=== PATIENT | female | born 1990 | race African-American/Black ===

== ENCOUNTER → 2016-12-27 | Outpatient (CLI) | payer MEDICAID ==
--- NOTE | 2016-12-27 16:28 | RADIOLOGY REPORT (SQ) ---
EXAM DESCRIPTION: U/S 1TRIMESTER/1GEST W/DOPPLER COMPLETED DATE/TIME: 12/27/2016 3:22 pm REASON FOR STUDY: ENCOUNTER FOR SUPERVISION OF NORMAL Z34.81 ENCOUNTER FOR SUPRVSN OF NOR MAL , FIRST TRIM COMPARISON: None. TECHNIQUE: Transabdominal and endovaginal static and realtime grayscale images acquired of the pelvi s. Additional selected spectral and color Doppler images recorded. All images stored on PACs. bHCG: Not available, last menses 10/07/2016 LIMITATIONS: None. FINDINGS: There is an intrauterine gestational sac containing an embryo, embryo crown-rump length ge nerates an age of 7 weeks 3 days. There is no embryo cardiac activity on cine loop grayscale images, color flow, or M-mode Doppler. This report was called to Jolie Ching at the [facility] Department, 1 430 hours 12/27/2016. SUBCHORIONIC BLEED: No SIZE OF BLEED: Not applicable. UTERUS: No masses. No anomalies. 9.6 x 6.6 x 5.5 cm in size CERVICAL LENGTH: 3.5 cm Closed. RIGHT ADNEXA: Normal ovary with normal vascular flow. 2.3 x 1 x 1.7 cm in size No adnexal free fluid. No adnexal masses. LEFT ADNEXA: Normal ovary with normal vascular flow. 2.5 x 2.5 x 1.7 cm in size. 1.4 cm cyst left o vary likely the corpus luteum No adnexal free fluid. No adnexal masses. FREE FLUID: None. OTHER: No other significant finding. IMPRESSION: Embryo demise, 7 week 3 day embryo intrauterine without embryo cardiac activit y Report called to Jolie Ching at the Health Department Trimester of : First - 0 to 13 weeks. COMMENT: Pertinent findings on the imaging study reported as a CRITICAL RESULT to JOLIE CHING FORM COVERER at14:31 on 12/27/2016. Category of Critical Result: Embryo demise TECHNICAL DOCUMENTATION: JOB ID: [id number] [employer]- All Rights Reserved
== END ==
LOC: RAD 14:02
PROVIDERS: ATTEND Nurse Practitioner Women's Health
DX: Z34.81 Encounter for supervision of other normal pregnancy, first trimester (principal)
CPT/HCPCS: 76801; 93976

== ENCOUNTER 2017-01-10 08:34 | Day surgery (SDC) | payer MEDICAID ==
[~2017-01-10 08:34] MED LIST: DEXAMETHASONE SOD PHOSPHATE INJ 4 MG/1 ML VIAL ONE; LIDOCAINE 2% INJ-PF (20 MG/ML) 10 ML AMPUL ONE; ONDANSETRON HCL INJ/PF 4 MG/2 ML SDV ONE; SUCCINYLCHOLINE CHLORIDE INJ 200 MG/10 ML VIAL ONE
[2017-01-10] MEDS ORDERED: DOXYCYCLINE HYCLATE 100 MG in DEXTROSE 5%-WATER 250 ML IV PRN (09:00)
[2017-01-10 09:14] LABS: APPEARANCE,URINE CLEAR; BILIRUBIN,URINE NEGATIVE (NEGATIVE); GLUCOSE, URINE NEGATIVE (NEGATIVE); KETONES,URINE NEGATIVE (NEGATIVE); LEUKOCYTE ESTERASE,URINE NEGATIVE (NEGATIVE); NITRITE,URINE NEGATIVE (NEGATIVE); PROTEIN,URINE NEGATIVE (NEGATIVE); URINE SPECIFIC GRAVITY 1.013; UROBILINOGEN,URINE NEGATIVE mg/dL (<2.0)
[2017-01-10 09:18] LABS: HEMATOCRIT 36.7 % (36.0-47.0); HEMOGLOBIN 12.4 g/dL (12.0-15.5); HGB HCT DIFFERENCE 0.5; MEAN CORPUSCULAR HEMOGLOBIN 31.2 pg (27.0-33.4); MEAN CORPUSCULAR HGB CONC 33.7 g/dL (32.0-36.0); MEAN CORPUSCULAR VOLUME 93 fl (80-97); RED BLOOD COUNT 3.96 10^6/uL (3.72-5.28); WHITE BLOOD COUNT 11.2 10^3/uL (4.0-10.5)
[2017-01-10] MEDS ORDERED: DEXAMETHASONE SOD PHOSPHATE INJ 4 MG/1 ML VIAL ONE (11:27)
[2017-01-10] MEDS ORDERED: FENTANYL CITRATE INJ/PF 250 MCG/5 ML AMPULE ONE (11:27)
[2017-01-10] MEDS ORDERED: MIDAZOLAM 2 MG/2 ML INJ ONE (11:27)
[2017-01-10] MEDS ORDERED: ACETAMINOPHEN 100 ML IV ONE (11:28)
[2017-01-10] MEDS ORDERED: PROPOFOL INJ 200 MG/20 ML VIAL IV ONE (11:28)
[2017-01-10] MEDS ORDERED: ONDANSETRON HCL INJ/PF 4 MG/2 ML SDV ONE (11:28)
[2017-01-10] MEDS ORDERED: LIDOCAINE 0.5%/EPINEPHRINE INJ 50 ML VIAL ONE (11:39)
[2017-01-10] MEDS ORDERED: MISOPROSTOL 0.2 MG TABLET ONE (11:51)
[2017-01-10] MEDS ORDERED: METHYLERGONOVINE MALEATE INJ/PF 0.2 MG/1 ML AMPULE ONE (11:51)
[2017-01-10] MEDS ORDERED: DIPHENHYDRAMINE HCL 50 MG/ML VIAL IV PRN (12:11)
[2017-01-10] MEDS ORDERED: OXYCODONE-ACETAMINOPHEN 5-325 MG TABLET PO PRN ×4 (12:11→12:47)
[2017-01-10] MEDS ORDERED: FENTANYL CITRATE INJ/PF 100 MCG/2 ML AMPUL IV PRN ×3 (12:11)
[2017-01-10] MEDS ORDERED: PROMETHAZINE HCL INJ 25 MG/1 ML VIAL IV PRN ×2 (12:11)
[2017-01-10] MEDS ORDERED: ONDANSETRON HCL INJ/PF 4 MG/2 ML SDV IV PRN (12:11)
[2017-01-10] MEDS ORDERED: MEPERIDINE HCL/PF INJ 25 MG/1 ML DISP.SYRIN IV PRN (12:11)
[2017-01-10] MEDS ORDERED: MORPHINE SULFATE 10 MG/ML INJ IV PRN (12:11)
[2017-01-10] MEDS ORDERED: FENTANYL CITRATE INJ/PF 100 MCG/2 ML AMPUL ONE (12:43)
[2017-01-10] MEDS ORDERED: IBUPROFEN 800 MG TABLET PO PRN (12:47)
[2017-01-10] MEDS ORDERED: HYDROMORPHONE HCL INJ/PF 2 MG/ML AMPULE IV PRN (12:47)
[2017-01-10] MEDS ORDERED: RINGERS SOLUTION,LACTATED 1,000 ML IV PRN (13:07)
[2017-01-10 15:26] VITALS: BP 112/78
--- NOTE | 2017-02-09 22:09 | Operative Report ---
Operative Report DATE OF SURGERY: 01/10/17 PREOPERATIVE DIAGNOSIS: Missed POSTOPERATIVE DIAGNOSIS: RICKIE - s/p suction Dilation and Curettage OPERATION: EUA, Paracervical Block, Suction D&C SURGEON: PADMINI RAMIREZ ANESTHESIA: GA TISSUE REMOVED OR ALTERED: products of conception COMPLICATIONS: NOne ESTIMATED BLOOD LOSS: 50ml INTRAOPERATIVE FINDINGS: Moderate products of conception, 8-10 week anteverted uterus PROCEDURE: Anesthesia: [Damaris CARNEY, Josie Shankar CRNA ] Anesthesia: GA UOP: [void prior to OR] IVF: [550ml] Indications: [26yo with missed confirmed now with 3 Ultrasounds noting no FCA. She desired attempt at cytotec for treatment of missed which failed and now desires Surgical management. The risks/benefits/ alternatives were reviewed and the patient desires to proceed with planned procedure.] Procedure: The patient was taken to the Operating Room where general anesthesia was obtained without difficulty. She was prepped and draped in the normal sterile fashion in the dorsal lithotomy position. Exam under anesthesia was performed and noted above. A speculum was placed in the vagina. The anterior cervix was grasped with a single-tooth tenaculum and the uterus sounded to [9cm ] after paracervical block was performed with 8 mL of 1% lidocaine with epinephrine. The cervix was noted to be closed at the beginning of the procedure. Sequential dilators were then used to dilate the cervix to accommodate the the 8 mm suction curet curved. The 8 mm curved suction curet was gently advanced in the usual fashion and good return of tissue. The suction device was then activated and the curet rotated to clear the uterus of the products of conception. A sharp curettage was then performed. The suction device was then gently reintroduced and activated and the curet rotated to clear the uterus of conception which was loosened with recent sharp curettage. The sharp curettage was then performed again until a gritty texture was noted and the cavity was felt to be empty of further tissue. At this time there was minimal bleeding noted from the cervix. All instruments were removed from the patient's cervix and vagina. Silver nitrate was applied to the tenaculum site for hemostasis. Sponge lap needle and instrument counts are correct 2. Doxycycline 100 mg IV was given perioperatively. The patient tolerated the procedure well and was taken to the recovery area awake and in stable condition. The patient was discharged home with pain medications as well as by mouth Methergine.
== END 2017-01-10 15:15 | disposition home or self-care (01) ==
LOC: OROUT 08:34
PROVIDERS: ATTEND Student in an Organized Health Care Education/Training Program
PROC: 10D17ZZ Extraction of Products of Conception, Retained, Via Natural or Artificial Opening (ICD-10-PCS; principal; 2017-01-10 10:30)
DX: O02.1 Missed abortion (principal); O03.39 Incomplete spontaneous abortion with other complications
CPT/HCPCS: 36415; 87086; 85027; 87088; 81001; 87186; 88305 ×2; 59820; J2250; J3490 ×4; J1100; J3010 ×2; J1170; J0330; J2405; J7060; J2704; J0131; 1965; J2210

== ENCOUNTER 2017-07-27 15:33 | Emergency (ER) | payer MEDICAID ==
--- NOTE | 2017-07-27 16:12 | ER Document Report ---
HPI - HPI Pain Level: 5 Notes: Patient is a 27-year-old female with no significant past medical history who presents to the ED complaining of fever, chills, body ache, nasal congestion/ discharge, dry nonproductive cough, sore throat 4 days. Patient is still eating and drinking without any difficulties. She is urinating normally having normal bowel movements. She has not been using any vijy-lca-xiruqth meds for symptoms. She denies any drug allergies. She denies any significant cardiopulmonary medical history. She denies any IV drug use. No other immunocompromised medical conditions. Denies any headache, current fever, neck pain, chest pain, palpitations, syncope, shortness of breath, wheeze, dyspnea, abdominal pain, nausea/vomiting/diarrhea, urinary retention, dysuria, hematuria , or rash. - ROS Systems Reviewed and Negative: Yes All other systems reviewed and negative - REPRODUCTIVE Reproductive: DENIES: : Past Medical History - Social History Smoking Status: Current Every Day Smoker Family History: DM, Hypertension, Malignancy - Past Medical History Cardiac Medical History: Denies: Hx Coronary Artery Disease, Hx Heart Attack, Hx Hypertension Pulmonary Medical History: Denies: Hx Asthma, Hx Bronchitis, Hx COPD, Hx Pneumonia, Hx Tuberculosis Neurological Medical History: Denies: Hx Cerebrovascular Accident, Hx Seizures Renal/ Medical History: Reports: Hx Ovarian Cysts GI Medical History: Reports: Hx Hiatal Hernia Musculoskeltal Medical History: Denies Hx Arthritis Past Surgical History: Reports: Hx Appendectomy, Hx Section, Hx Herniorrhaphy, Hx Oral Surgery - [place] teeth, Hx Tonsillectomy, Hx Umbilical Hernia. Denies: Hx Hysterectomy, Hx Pacemaker - Immunizations Hx Diphtheria, Pertussis, Tetanus Vaccination: Yes Vertical Provider Document - CONSTITUTIONAL Agree With Documented VS: Yes Notes: PHYSICAL EXAMINATION: GENERAL: Well-appearing, well-nourished and in no acute distress. A&Ox4. Answers questions appropriately. Moves comfortably w/o notable distress HEAD: Atraumatic, normocephalic. EYES: Pupils equal round and reactive to light, extraocular movements intact, sclera anicteric, conjunctiva are normal. ENT: EAC clear b/l. TM's intact b/l without erythema, fluid, or perforation. Nares patent and with clear discharge. oropharynx mild erythema without exudates. Tonsils absent. No palatine shift. Uvula midline. No tongue protrusion. No drooling, hoarseness, or airway compromise. Moist mucous membranes. No sinus tenderness. NECK: Normal range of motion, supple without lymphadenopathy. No rigidity/ meningismus. LUNGS: Breath sounds clear to auscultation bilaterally and equal. No wheezes rales or rhonchi. No retractions HEART: Regular rate and rhythm without murmurs, rubs, gallops. ABDOMEN: Soft, nontender, nondistended abdomen. No guarding, no rebound. No masses appreciated. Normal bowel sounds present. No CVA tenderness bilaterally. No hepatosplenomegaly. NEUROLOGICAL: Normal speech, normal gait. Normal sensory, motor exams PSYCH: Normal mood, normal affect. SKIN: Warm, Dry, normal turgor, no rashes or lesions noted. - INFECTION CONTROL TRAVEL OUTSIDE OF THE [place] IN LAST 30 DAYS: No - RESPIRATORY O2 Sat by Pulse Oximetry: 98 Course - Re-evaluation Re-evalutation: 07/27/17 16:45 Patient is an afebrile, well-hydrated, 27-year-old female who presents ED with acute URI, suspect influenza. Vitals are stable. PE is otherwise unremarkable. CXR unremarkable for acute pathology. Rapid strep neg with cx pending. No other labs or imaging warranted at this time based on H&P. Patient has no significant cardiopulmonary or immunocompromised medical conditions. Patient's lungs are clear to auscultation bilaterally without tachycardia, hypoxia, or tachypnea. Patient is tolerating p.o. without any difficulties. Thoroughly reviewed the risks, benefits, side effects of Tamiflu. Patient declines Tamiflu at this time. Low suspicion for any meningitis, sepsis, peritonsillar/pharyngeal abscess, respiratory compromise, severe dehydration, or other emergent systemic condition at this time. Patient is aware this condition can change from initial presentation and she needs to monitor symptoms closely. I will send her home with a prescription for Tessalon to take as directed. Conservative measures otherwise for symptoms. Recheck with your PCM in 3-5 days. Return to the ED with any worsening/ concerning symptoms otherwise as reviewed in discharge. Patient is in agreement. - Vital Signs Vital signs: Temp Pulse Resp BP Pulse Ox 98.8 F 76 16 119/69 98 07/27/17 15:52 07/27/17 15:52 07/27/17 15:52 07/27/17 15:52 02/09/18 15:52 Discharge - Discharge Clinical Impression: Acute URI, Influenza Condition: Stable Disposition: HOME, SELF-CARE Instructions: Influenza ([facility]), Sore Throat ([facility]), Upper Respiratory Illness ( [facility]) Additional Instructions: Maintain adequate fluid intake Take meds as directed tylenol/ibuprofen as needed over the counter cold medication as needed for symptoms Salt water gargles, throat sprays, peroxide rinse Humidified air may help Wash your hands regularly Wear a mask when coughing F/u: with your PCM in 3-5 days for a recheck Return to the ED with any fever, worsening pain, chest pain, palpitations, syncope, worsening SHAFFER, neck pain/stiffness, shortness of breath, wheezing, drooling, trouble swallowing/breathing, abdominal pain, n/v/d, rash, or worsening/concerning symptoms otherwise. Prescriptions: Benzonatate [Tessalon Perle 100 mg Capsule] 100 mg PO Q8HP PRN #[id number] PRN Reason: Referrals: [facility] [Provider Group] - Follow up as needed [facility] [Provider Group] - Follow up as needed
[2017-07-27] MEDS ORDERED: ACETAMINOPHEN 325 MG TABLET PO ONE (16:20)
--- NOTE | 2017-07-27 16:45 | RADIOLOGY REPORT (SQ) ---
EXAM DESCRIPTION: CHEST PA/LAT COMPLETED DATE/TIME: 07/27/2017 4:28 pm REASON FOR STUDY: cough COMPARISON: June 2015 EXAM PARAMETERS: NUMBER OF VIEWS: two views TECHNIQUE: Digital Frontal and Lateral radiographic views of the chest acquired. RADIATION DOSE: NA LIMITATIONS: none FINDINGS: LUNGS AND PLEURA: No opacities, masses or pneumothorax. No pleural effusion. MEDIASTINUM AND HILAR STRUCTURES: No masses or contour abnormalities. HEART AND VASCULAR STRUCTURES: Heart normal size. No evidence for failure. BONES: No acute findings. HARDWARE: None in the chest. OTHER: No other significant finding. IMPRESSION: NO SIGNIFICANT RADIOGRAPHIC FINDING IN THE CHEST. TECHNICAL DOCUMENTATION: JOB ID: [id number] [employer]- All Rights Reserved
[2017-07-27 16:57] VITALS: BP 124/70
== END 2017-07-27 16:55 | disposition home or self-care (01) ==
LOC: ER 15:33
DX: J11.1 Influenza due to unidentified influenza virus with other respiratory manifestations (principal); R50.9 Fever, unspecified; R05 Cough; F17.200 Nicotine dependence, unspecified, uncomplicated
CPT/HCPCS: 99283; 87070; 87880; 71046; J3490

== ENCOUNTER 2019-08-17 00:24 | Emergency (ER) | payer MEDICAID ==
[2019-08-17 00:50] LABS: ABSOLUTE EOSINOPHILS # (AUTO) 0.3 10^3/uL (0.0-0.6); ABSOLUTE MONOCYTES (AUTO) 1.5 10^3/uL (0.1-1.4); ABSOLUTE NEUT (AUTO) 12.6 10^3/uL (1.7-8.2); BASOPHILS % (AUTO) 0.2 % (0-2); EOSINOPHILS % (AUTO) 1.4 % (0-6); HEMATOCRIT 41.1 % (36.0-47.0); HEMOGLOBIN 13.4 g/dL (12.0-15.5); LYMPHOCYTES % (AUTO) 25.9 % (13-45); MEAN CORPUSCULAR HGB CONC 32.6 g/dL (32.0-36.0); MEAN CORPUSCULAR VOLUME 95 fl (80-97); MONOCYTES % (AUTO) 7.8 % (3-13); PLATELET COUNT 283 10^3/uL (150-450); RED BLOOD COUNT 4.33 10^6/uL (3.72-5.28); RED CELL DISTRIBUTION WIDTH 14.8 % (11.5-14.0); SEGMENTED NEUTROPHILS % (AUTO) 64.7 % (42-78); TOTAL CELLS COUNTED % (AUTO) 100 %; WHITE BLOOD COUNT 19.4 10^3/uL (4.0-10.5)
[2019-08-17 01:22] LABS: A TYPE INFLUENZA AG NEGATIVE (NEGATIVE); B INFLUENZA AG NEGATIVE (NEGATIVE)
--- NOTE | 2019-08-17 01:30 | RADIOLOGY REPORT (SQ) ---
EXAM DESCRIPTION: XR CHEST 1 VIEW COMPLETED DATE/TME: 08/17/2019 00:36 CLINICAL HISTORY: 29 years, Female, fever, shortness of breath COMPARISON: None. NUMBER OF VIEWS: 2 TECHNIQUE: LIMITATIONS: None. FINDINGS: Cardiomediastinal silhouette is normal. Lungs are clear. No effusion. No pneumothorax. Visualized bones are unremarkable IMPRESSION: No active intrathoracic disease copyright 2010 [employer]- All Rights Reserved
[2019-08-17 01:55] LABS: APPEARANCE,URINE CLOUDY; BILIRUBIN,URINE NEGATIVE (NEGATIVE); COLOR,URINE YELLOW; GLUCOSE, URINE NEGATIVE (NEGATIVE); KETONES,URINE 20 mg/dL (NEGATIVE); LEUKOCYTE ESTERASE,URINE TRACE (NEGATIVE); NITRITE,URINE NEGATIVE (NEGATIVE); PROTEIN,URINE NEGATIVE (NEGATIVE); URINE SPECIFIC GRAVITY 1.016
[2019-08-17 01:59] LABS: ALBUMIN 4.2 g/dL (3.5-5.0); ALKALINE PHOSPHATASE 110 U/L (38-126); ANION GAP 9 (5-19); ASPARTATE AMINO TRANSFERASE 65 U/L (14-36); BILIRUBIN,DIRECT 0.1 mg/dL (0.0-0.4); BILIRUBIN,TOTAL 0.8 mg/dL (0.2-1.3); BLOOD UREA NITROGEN 9 mg/dL (7-20); CALCIUM 9.3 mg/dL (8.4-10.2); CARBON DIOXIDE 23 mmol/L (22-30); CHLORIDE 104 mmol/L (98-107); GLUCOSE 118 mg/dL (75-110); POTASSIUM 3.4 mmol/L (3.6-5.0); TOTAL PROTEIN 7.7 g/dL (6.3-8.2)
[2019-08-17 03:46] VITALS: BP 118/83
[2019-08-17] MEDS ORDERED: ALBUTEROL SULFATE HFA (90 MCG/PUFF) 8 GM MDI IH PRN (03:48)
[2019-08-17] MEDS ORDERED: ALBUTEROL SULFATE 0.083% NEB 2.5 MG/3 ML AMPUL NEB PRN (03:48)
[2019-08-17] MEDS ORDERED: PREDNISONE 20 MG TABLET PO ONE (03:49)
--- NOTE | 2019-08-17 05:31 | ER Document Report ---
Entered by LUIS ALEXIS SCRIBE 08/17/19 0343 Acting as scribe for:BLANCA NIELSEN IV, MD ED General - General Chief Complaint: Fever Stated Complaint: FEVER,SHORTNESS OF BREATH Time Seen by Provider: 08/17/19 03:41 Primary Care Provider: SHAWNEE NGUYEN DO [Primary Care Provider] - Follow up as needed Mode of Arrival: Medic Information source: Patient Notes: This 29 year old female patient brought in by EMS from home presents to the ED today with complaints of worsening malaise and shortness of breath with exertion for the past x1 week. Patient reports walking in the house tonight feeling very short of breath and having fevers throughout the day. Patient also reports cough and dyspnea. Patient states that she did take 975mg PO tylenol prior to EMS arrival. EMS states that they administered x1 breathing treatment en route. Patient states that she is a current every day smoker and that she has never had an albuterol inhaler before. TRAVEL OUTSIDE OF THE [place] IN LAST 30 DAYS: No - Related Data Allergies/Adverse Reactions: No Known Allergies Allergy (Verified 07/27/17 15:34) Past Medical History - General Information source: Patient - Social History Smoking Status: Current Every Day Smoker Cigarette use (# per day): Yes Chew tobacco use (# tins/day): No Smoking Education Provided: No Family History: Reviewed & Not Pertinent, DM, Hypertension, Malignancy Patient has suicidal ideation: No Patient has homicidal ideation: No Renal/ Medical History: Reports: Hx Ovarian Cysts GI Medical History: Reports: Hx Hiatal Hernia Past Surgical History: Reports: Hx Appendectomy, Hx Section, Hx Herniorrhaphy, Hx Oral Surgery - [place] teeth, Hx Tonsillectomy, Hx Umbilical Hernia - Immunizations Hx Diphtheria, Pertussis, Tetanus Vaccination: Yes Review of Systems - Review of Systems Constitutional: See HPI, Fever, Malaise EENT: No symptoms reported Cardiovascular: See HPI, Dyspnea Respiratory: See HPI, Cough, Short of breath Gastrointestinal: No symptoms reported Genitourinary: No symptoms reported Female Genitourinary: No symptoms reported Musculoskeletal: No symptoms reported Skin: No symptoms reported Hematologic/Lymphatic: No symptoms reported Neurological/Psychological: No symptoms reported -: Yes All other systems reviewed and negative Physical Exam - Vital signs Vitals: Resp Pulse Ox 19 98 08/17/19 00:30 08/17/19 00:30 Interpretation: Normal - General General appearance: Alert In distress: None - HEENT Head: Normocephalic, Atraumatic Eyes: Normal Pupils: PERRL - Respiratory Respiratory status: No respiratory distress Chest status: Nontender Breath sounds: Normal Chest palpation: Normal - Cardiovascular Rhythm: Regular Heart sounds: Normal auscultation Murmur: No Friction rub: No Gallop: None auscultated - Abdominal Inspection: Normal Distension: No distension Bowel sounds: Normal Tenderness: Nontender - Abdomen soft Organomegaly: No organomegaly - Back Back: Normal, Nontender - Extremities General upper extremity: Normal inspection General lower extremity: Normal inspection - Neurological Neuro grossly intact: Yes - Psychological Associated symptoms: Normal affect, Normal mood - Skin Skin Temperature: Warm Skin Moisture: Dry Skin Color: Normal Course - Re-evaluation Re-evalutation: 08/17/19 03:50 Results of ED MSE discussed with patient. All questions were answered prior to discharge. Patient was encouraged to quit smoking. Emergency signs and symptoms, reasons to return to the emergency department discussed with patient. - Vital Signs Vital signs: Temp Pulse Resp BP Pulse Ox 98.9 F 20 118/83 99 08/17/19 04:26 08/17/19 03:01 08/17/19 03:00 08/17/19 04:26 - Laboratory Result Diagrams: 08/17/19 00:30 08/17/19 01:25 Laboratory results interpreted by me: 08/17/19 08/17/19 08/17/19 00:30 01:25 01:35 WBC 19.4 H RDW 14.8 H Absolute Neuts (auto) 12.6 H Absolute Lymphs (auto) 5.0 H Absolute Monos (auto) 1.5 H Sodium 135.5 L Potassium 3.4 L Glucose 118 H AST 65 H ALT 77 H Urine Ketones 20 H Urine Blood LARGE H Urine Urobilinogen 4.0 H Ur Leukocyte Esterase TRACE H Discharge - Discharge Clinical Impression: Tobacco abuse, Tobacco abuse counseling Acute bronchitis Qualifiers: Bronchitis organism: unspecified organism Qualified Code(s): J20.9 - Acute bronchitis, unspecified Condition: Good Disposition: HOME, SELF-CARE Additional Instructions: Return to the Emergency Department without delay if any worse. HOME CARE INSTRUCTIONS & INFORMATION: Thank you for choosing us for your medical needs. We hope you're satisfied with the care you received. After you leave, you must properly care for your problem and, at the same time, observe its progress. Any condition can change. Some illnesses can change rapidly over hours or days. If your condition worsens, return to the Emergency Department or see your physician promptly. ABOUT YOUR X-RAYS AND EKG'S: If you had an EKG or X-rays taken, they have been read by the Emergency Physician. The X-rays and EKG's will also be read by a Radiologist or Arc Cutter within 24 hours. If discrepancies are noted, you will be notified by telephone. Please be certain the ED has a correct telephone number & address where you can be reached. Also, realize that some fractures or abnormalities do not show up on initial X-rays. If your symptoms continue, see your physician. ABOUT YOUR LABORATORY TEST: If you had laboratory tests, the results have been reviewed by the Emergency Physician. Some test results (for example cultures) may not be available for several days. You will be contacted if any test result shows you need additional treatment. Please be certain the ED has a correct telephone number and address where you can be reached. ABOUT YOUR MEDICATIONS: You will receive instructions on how to take your medicine on the prescription label you receive. Additional information may be provided by the Pharmacy. If you have questions afterwards, call the ED for clarification or further instructions. Some prescribed medications may cause drowsiness. Do not perform tasks such as driving a car or operating machinery without consulting your Pharmacist. If you feel you need a refill of pain medication, your condition will need re-evaluation. Please do not call for a refill of any medication. ABOUT YOUR SIGNATURE: Signature of this document acknowledges to followin. Understanding that you received emergency treatment and that you may be released before al medical problems are known or treated. Please be certain the ED has a correct phone number & address where you can be reached. 2. Acknowledgement that you will arrange for follow-up care as recommended. 3. Authorization for the Emergency Physician to provide information to your follow-up Physician in order to maximize your care. AT ANY TIME, IF YOUR SYMPTOMS CHANGE SIGNIFICANTLY OR WORSEN OR YOU DEVELOP NEW SYMPTOMS, RETURN TO THE EMERGENCY DEPARTMENT IMMEDIATELY FOR RE-EVALUATION. OUR GOAL IS TO PROVIDE EXCELLENT MEDICAL CARE! WE HOPE THAT WE HAVE MET YOUR EXPECTATIONS DURING YOUR EMERGENCY DEPARTMENT VISIT AND THAT YOU FEEL YOU HAVE RECEIVED EXCELLENT CARE! Bronchitis You have acute bronchitis. This disease is an infection or inflammation of the air passageways in your lungs. Symptoms usually include cough, low grade fever, shortness of breath, and wheezing. The cough usually persists for a couple of weeks. Most cases of bronchitis get better without antibiotics. We prescribe antibiotics when we believe bacteria are damaging your airways, or if there's high risk the bronchitis will worsen into pneumonia. Increase your fluid intake. A cool mist humidifier may make your lungs more comfortable. An expectorant (cough medicine that loosens phlegm) can help. If you smoke, STOP!!! Recovery from bronchitis can be somewhat slow, but you should see improvement within a day or two. Repeated episodes of bronchitis may result in lung damage -- for example, chronic bronchitis, recurrent pneumonias, or emphysema. Call the doctor if you develop increasing fever, shortness of breath, chest pain, bloody sputum, or otherwise worsen. If you have not improved at all after several days, contact the physician. Stop Smoking You should stop smoking. The tar and chemicals in cigarette smoke are harmful. Smoking has been shown to cause: Emphysema and chronic bronchitis Lung cancer Cancer of the mouth, larynx, stomach, and pancreas Heart disease and stroke Stillbirths and miscarriage Premature aging In addition, smoking increases the chances of respiratory infections and ear infections in children of smokers, and increases the risk of cancer in persons exposed to second-hand smoke. Classes are available to help you stop smoking. If you are serious about wanting to quit, we can help arrange this therapy for you, or you can contact the local lung or cancer association. Prescriptions: Prednisone [Deltasone 20 mg Tablet] 3 tab PO DAILY 4 Days #12 tablet Referrals: SHAWNEE NGUYEN DO [Primary Care Provider] - Follow up as needed I personally performed the services described in the documentation, reviewed and edited the documentation which was dictated to the scribe in my presence, and it accurately records my words and actions.
== END 2019-08-17 04:27 | disposition home or self-care (01) ==
LOC: ER 00:24
DX: J20.9 Acute bronchitis, unspecified (principal); R50.9 Fever, unspecified; R06.02 Shortness of breath; R05 Cough; R06.00 Dyspnea, unspecified; F17.210 Nicotine dependence, cigarettes, uncomplicated
CPT/HCPCS: 99285; 36415; 85025; 81025; 80053; 81001; 87804; 71045; J7512; J3490

== ENCOUNTER 2020-02-05 13:00 | Emergency (ER) | payer MEDICAID ==
[2020-02-05] MEDS ORDERED: CLINDAMYCIN 600 MG/D5W RTU 600 MG/50 ML RTUPB IV ONE (14:46)
--- NOTE | 2020-02-05 14:48 | ER Document Report ---
ED Medical Screen (RME) - General Chief Complaint: Mouth Injury Stated Complaint: MOUTH PAIN,SWELLING Time Seen by Provider: 02/05/20 14:41 Primary Care Provider: SHAWNEE NGUYEN DO [Primary Care Provider] - Follow up as needed Mode of Arrival: Ambulatory Information source: Patient Notes: HPI; 29-year-old female presents to the emergency room with swelling to the left side of her cheek. Patient states about a week ago she accidentally bit her cheek while eating x2. Started having increasing swelling. Now notices a huge discolored erythematous spot with an area that looks white. States is able to eat but is very painful to eat on that side. States she has been taking Tylenol and Motrin without relief. PE: Alert and oriented x3. Moderate distress noted. Lungs: Clear to auscultation without rales, rhonchi, wheezes. Heart: Regular rate rhythm without murmurs, rubs, gallops. Moderate swelling is noted to the left cheek. No palpable abscesses noted along the gumline. No fractured teeth good dentition. Positive left anterior cervical lymphadenopathy. I have greeted and performed a rapid initial assessment of this patient. A comprehensive ED assessment and evaluation of the patient, analysis of test results and completion of the medical decision making process will be conducted by additional ED providers. I have specifically instructed the patient or family members with the patient to immediately return to any nursing staff should anything change in the patient's condition or with their chief complaint. TRAVEL OUTSIDE OF THE [place] IN LAST 30 DAYS: No - Related Data Allergies/Adverse Reactions: No Known Allergies Allergy (Verified 07/27/17 15:34) Past Medical History - Past Medical History Cardiac Medical History: Denies: Hx Coronary Artery Disease, Hx Heart Attack, Hx Hypertension Pulmonary Medical History: Denies: Hx Asthma, Hx Bronchitis, Hx COPD, Hx Pneumonia, Hx Tuberculosis Neurological Medical History: Denies: Hx Cerebrovascular Accident, Hx Seizures Renal/ Medical History: Reports: Hx Ovarian Cysts. Denies: Hx Peritoneal Dialysis GI Medical History: Reports: Hx Hiatal Hernia Musculoskeltal Medical History: Denies Hx Arthritis Past Surgical History: Reports: Hx Appendectomy, Hx Section, Hx Herniorrhaphy, Hx Oral Surgery - [place] teeth, Hx Tonsillectomy, Hx Umbilical Hernia. Denies: Hx Hysterectomy, Hx Pacemaker - Immunizations Hx Diphtheria, Pertussis, Tetanus Vaccination: Yes Physical Exam - Vital signs Vitals: Temp Pulse Resp BP Pulse Ox 98.3 F 79 16 130/81 H 98 02/05/20 13:06 02/05/20 13:06 02/05/20 13:06 02/05/20 13:06 02/05/20 13:06 Course - Vital Signs Vital signs: Temp Pulse Resp BP Pulse Ox 98.3 F 79 16 130/81 H 98 02/05/20 13:06 02/05/20 13:06 02/05/20 13:06 02/05/20 13:06 02/05/20 13:06 Doctor's Discharge - Discharge Referrals: SHAWNEE NGUYEN DO [Primary Care Provider] - Follow up as needed
[2020-02-05 15:23] LABS: ABSOLUTE BASOPHILS # (AUTO) 0.1 10^3/uL (0.0-0.2); ABSOLUTE EOSINOPHILS # (AUTO) 0.3 10^3/uL (0.0-0.6); ABSOLUTE LYMPHOCYTES (AUTO) 3.7 10^3/uL (0.5-4.7); ABSOLUTE MONOCYTES (AUTO) 0.9 10^3/uL (0.1-1.4); ABSOLUTE NEUT (AUTO) 7.5 10^3/uL (1.7-8.2); BASOPHILS % (AUTO) 0.6 % (0-2); EOSINOPHILS % (AUTO) 2.4 % (0-6); HEMATOCRIT 40.3 % (36.0-47.0); HEMOGLOBIN 13.8 g/dL (12.0-15.5); LYMPHOCYTES % (AUTO) 29.5 % (13-45); MEAN CORPUSCULAR HEMOGLOBIN 31.2 pg (27.0-33.4); MEAN CORPUSCULAR HGB CONC 34.3 g/dL (32.0-36.0); MEAN CORPUSCULAR VOLUME 91 fl (80-97); MONOCYTES % (AUTO) 7.5 % (3-13); PLATELET COUNT 323 10^3/uL (150-450); RED BLOOD COUNT 4.43 10^6/uL (3.72-5.28); RED CELL DISTRIBUTION WIDTH 13.6 % (11.5-14.0); TOTAL CELLS COUNTED % (AUTO) 100 %; WHITE BLOOD COUNT 12.5 10^3/uL (4.0-10.5)
[2020-02-05 15:45] LABS: ALBUMIN 4.2 g/dL (3.5-5.0); ALKALINE PHOSPHATASE 119 U/L (38-126); ANION GAP 9 (5-19); ASPARTATE AMINO TRANSFERASE 29 U/L (14-36); BILIRUBIN,TOTAL 0.5 mg/dL (0.2-1.3); BLOOD UREA NITROGEN 10 mg/dL (7-20); CALCIUM 9.9 mg/dL (8.4-10.2); CARBON DIOXIDE 24 mmol/L (22-30); CHLORIDE 106 mmol/L (98-107); GLUCOSE 94 mg/dL (75-110); POTASSIUM 4.6 mmol/L (3.6-5.0); TOTAL PROTEIN 7.8 g/dL (6.3-8.2)
--- NOTE | 2020-02-05 17:47 | ER Document Report ---
ED General - General Chief Complaint: Mouth Injury Stated Complaint: MOUTH PAIN,SWELLING Time Seen by Provider: 02/05/20 14:41 Primary Care Provider: SHAWNEE NGUYEN DO [NO LOCAL MD] - Follow up as needed Mode of Arrival: Ambulatory Information source: Patient Notes: Otherwise healthy 29-year-old female presents the emergency department concern for swelling to her right cheek. Patient reports she bit the inside of her mouth a few days ago and has had pain and swelling since then. Patient denies any fever, chills, nausea, vomiting or diarrhea. Patient reports she is able to swallow without difficulty. TRAVEL OUTSIDE OF THE [place] IN LAST 30 DAYS: No - Related Data Allergies/Adverse Reactions: No Known Allergies Allergy (Verified 07/27/17 15:34) Past Medical History - General Information source: Patient - Social History Smoking Status: Unknown if Ever Smoked Family History: Reviewed & Not Pertinent, DM, Hypertension, Malignancy - Past Medical History Cardiac Medical History: Denies: Hx Coronary Artery Disease, Hx Heart Attack, Hx Hypertension Pulmonary Medical History: Denies: Hx Asthma, Hx Bronchitis, Hx COPD, Hx Pneumonia, Hx Tuberculosis Neurological Medical History: Denies: Hx Cerebrovascular Accident, Hx Seizures Renal/ Medical History: Reports: Hx Ovarian Cysts. Denies: Hx Peritoneal Dialysis GI Medical History: Reports: Hx Hiatal Hernia Musculoskeletal Medical History: Denies Hx Arthritis Past Surgical History: Reports: Hx Appendectomy, Hx Section, Hx Herniorrhaphy, Hx Oral Surgery - [place] teeth, Hx Tonsillectomy, Hx Umbilical H ernia. Denies: Hx Hysterectomy, Hx Pacemaker - Immunizations Hx Diphtheria, Pertussis, Tetanus Vaccination: Yes Review of Systems - Review of Systems Constitutional: No symptoms reported EENT: Other - Left cheek pain/swelling Cardiovascular: No symptoms reported Respiratory: No symptoms reported Gastrointestinal: No symptoms reported Genitourinary: No symptoms reported Female Genitourinary: No symptoms reported Musculoskeletal: No symptoms reported Skin: No symptoms reported Hematologic/Lymphatic: No symptoms reported Neurological/Psychological: No symptoms reported Physical Exam - Vital signs Vitals: Temp Pulse Resp BP Pulse Ox 98.3 F 79 16 130/81 H 98 02/05/20 13:06 02/05/20 13:06 02/05/20 13:06 02/05/20 13:06 02/05/20 13:06 - Notes Notes: PHYSICAL EXAMINATION: GENERAL: Well-appearing, well-nourished and in no acute distress. HEAD: Atraumatic, normocephalic. EYES: Pupils equal round and reactive to light, extraocular movements intact, conjunctiva are normal. ENT: Nares patent, oropharynx clear without exudates. Moist mucous membranes. NECK: Normal range of motion, supple without lymphadenopathy LUNGS: Breath sounds clear to auscultation bilaterally and equal. No wheezes rales or rhonchi. HEART: Regular rate and rhythm without murmurs ABDOMEN: Soft, nontender, nondistended abdomen. No guarding, no rebound. No masses appreciated. Female : deferred Musculoskeletal: Normal range of motion, no pitting or edema. No cyanosis. NEUROLOGICAL: Cranial nerves grossly intact. Normal speech, normal gait. Normal sensory, motor exams PSYCH: Normal mood, normal affect. SKIN: Swelling noted to left face, specifically swelling and ulceration noted inside left cheek. No obvious abscess. Course - Re-evaluation Re-evalutation: Microbiology 02/05/20 17:49 Blood Culture - Preliminary Blood NO GROWTH IN 24 HOURS 02/05/20 15:02 Blood Culture - Preliminary Blood NO GROWTH IN 24 HOURS Laboratory 02/05/20 02/05/20 02/05/20 15:02 15:02 15:02 WBC 12.5 H RBC 4.43 Hgb 13.8 Hct 40.3 MCV 91 MCH 31.2 MCHC 34.3 RDW 13.6 Plt Count 323 Lymph % (Auto) 29.5 Cross % (Auto) 7.5 Eos % (Auto) 2.4 Baso % (Auto) 0.6 Absolute Neuts (auto) 7.5 Absolute Lymphs (auto) 3.7 Absolute Monos (auto) 0.9 Absolute Eos (auto) 0.3 Absolute Basos (auto) 0.1 Seg Neutrophils % 60.0 Sodium 138.8 Potassium 4.6 Chloride 106 Carbon Dioxide 24 Anion Gap 9 BUN 10 Creatinine 0.81 Est GFR ( Amer) > 60 Est GFR (MDRD) Non-Af > 60 Glucose 94 Lactic Acid 0.7 Calcium 9.9 Total Bilirubin 0.5 Direct Bilirubin 0.0 Neonat Total Bilirubin Not Reportable Neonat Direct Bilirubin Not Reportable Neonat Indirect Bili Not Reportable AST 29 ALT 30 Alkaline Phosphatase 119 Total Protein 7.8 Albumin 4.2 Serum HCG, Qual 02/05/20 15:02 WBC RBC Hgb Hct MCV MCH MCHC RDW Plt Count Lymph % (Auto) Cross % (Auto) Eos % (Auto) Baso % (Auto) Absolute Neuts (auto) Absolute Lymphs (auto) Absolute Monos (auto) Absolute Eos (auto) Absolute Basos (auto) Seg Neutrophils % Sodium Potassium Chloride Carbon Dioxide Anion Gap BUN Creatinine Est GFR ( Amer) Est GFR (MDRD) Non-Af Glucose Lactic Acid Calcium Total Bilirubin Direct Bilirubin Neonat Total Bilirubin Neonat Direct Bilirubin Neonat Indirect Bili AST ALT Alkaline Phosphatase Total Protein Albumin Serum HCG, Qual NEGATIVE Soft Tissue Neck CT 02/05/20 14:44 IMPRESSION: Cellulitis. No abscess. Patient appears well, nontoxic. No abscess noted, cellulitis to left buccal space. Will start patient on appropriate medications with strict ED return precautions. - Vital Signs Vital signs: Temp Pulse Resp BP Pulse Ox 97.9 F 66 17 141/89 H 99 02/05/20 19:35 02/05/20 19:35 02/05/20 19:35 02/05/20 19:35 02/05/20 19:35 - Laboratory Result Diagrams: 02/05/20 15:02 02/05/20 15:02 Laboratory results interpreted by me: 02/05/20 15:02 WBC 12.5 H Discharge - Discharge Clinical Impression: Cellulitis of buccal space of mouth Condition: Stable Disposition: HOME, SELF-CARE Additional Instructions: Take medications as prescribed. Please also take 600 mg of ibuprofen every 6 hours for the next 2 to 3 days. Do not eat any greasy, salty or spicy foods as this may irritate the area. Please follow-up with your primary care provider for a recheck in 5 days. Prescriptions: Oxycodone HCl/Acetaminophen [Percocet 5-325 mg Tablet] 1 tab PO Q6HP PRN #12 tablet PRN Reason: Clindamycin HCl 300 mg PO TID #30 capsule Chlorhexidine Gluconate [Periogard] 10 ml MM QID #1 bottle Referrals: SHAWNEE NGUYEN DO [NO LOCAL MD] - Follow up as needed
--- NOTE | 2020-02-05 19:06 | RADIOLOGY REPORT (SQ) ---
EXAM DESCRIPTION: CT SOFT TISSUE NECK WITH IMAGES COMPLETED DATE/TIME: 02/05/2020 6:42 pm REASON FOR STUDY: facial sweilling COMPARISON: None. TECHNIQUE: Post IV contrasted scanning from skull base through lung apices with review of bone, soft tissue and lung windows. Reconstructed coronal and sagittal MPR images reviewed. All images stored on PACS. All CT scanners at this facility use dose modulation, iterative reconstruction, and/or weight based d osing when appropriate to reduce radiation dose to as low as reasonably achievable (ALARA). [facility]: Dose Right [facility]: CareDose [facility]: Dose Right [facility]: Teradose 4D [facility]: PulseSocks CONTRAST TYPE AND DOSE: contrast/concentration: Isovue 350.00 mmol/ml; Total Contrast Delivered: 74. 0 ml; Total Saline Delivered: 52.0 ml RENAL FUNCTION: GFR > 60. RADIATION DOSE: CT Rad equipment meets quality standard of care and radiation dose reduction techniq ues were employed. CTDIvol: 16.2 mGy. DLP: 437 mGy-cm. . LIMITATIONS: None. FINDINGS: SKULL BASE: Intact. MAJOR SALIVARY GLANDS: No solid or cystic masses. No inflammatory changes. LYMPHADENOPATHY: No adenopathy. MUCOSAL MASSES OR ASYMMETRY: No mucosal masses or asymmetry. LARYNX/CORDS: No abnormal findings. VASCULAR STRUCTURES: The major vessels are patent. LUNG APICES: Clear. BONES: Intact. THYROID: Normal size. No masses. PARANASAL SINUSES: Clear. OTHER: Inflammation in the subcutaneous tissues of the left side of the cheek and mandible. No absce ss. IMPRESSION: Cellulitis. No abscess. TECHNICAL DOCUMENTATION: JOB ID: [id number] Quality ID # [id number]: Final reports with documentation of one or more dose reduction techniques (e.g., Au tomated exposure control, adjustment of the mA and/or kV according to patient size, use of iterative reconstruction technique) 2010 [employer]- All Rights Reserved Reading location - IP/workstation name: [email or web address]
[2020-02-05 19:36] VITALS: BP 141/89
== END 2020-02-05 19:36 | disposition home or self-care (01) ==
LOC: ER 13:00
DX: K12.2 Cellulitis and abscess of mouth (principal); S09.93XA Unspecified injury of face, initial encounter; R22.0 Localized swelling, mass and lump, head; K08.89 Other specified disorders of teeth and supporting structures; X58.XXXA Exposure to other specified factors, initial encounter
CPT/HCPCS: 99285; 96365; 36415; 87040; 83605; 84703; 85025; 80053; 70491; S0077

== ENCOUNTER 2020-03-20 11:35 | Emergency (ER) | payer MEDICAID ==
[2020-03-20 11:55] VITALS: BP 130/85
--- NOTE | 2020-03-20 12:26 | ER Document Report ---
HPI - HPI Patient complains to provider of: mouth sores Time Seen by Provider: 03/20/20 12:17 Context: 29-year-old female with no previous medical problems presents to the emergency room concerned about a oral lesion inside her right lower lip. States she noticed a week ago. No fevers. No trauma no injury. No bad tooth she is aware of. Has been taking Motrin without relief. Had a similar abscess to her left cheek back in January that resolved with antibiotics. She denies any history of MRSA, no history of herpes. Denies any chance of . Eating and drinking normally. Able to tolerate p.o. food and fluids without difficulty. Associated Symptoms: None Exacerbated by: Denies Relieved by: Denies Similar symptoms previously: Yes - Similar lesion to her left cheek in January. Recently seen / treated by doctor: No - ROS Systems Reviewed and Negative: Yes All other systems reviewed and negative - CONSTITUTIONAL Constitutional: DENIES: Fever - EENT EENT: DENIES: Sore Throat Notes: Oral lesion - RESPIRATORY Respiratory: DENIES: Trouble Breathing, Coughing - REPRODUCTIVE Reproductive: DENIES: : - DERM Skin Color: Erythema Skin Problems: None Past Medical History - General Information source: Patient - Social History Smoking Status: Current Every Day Smoker Frequency of alcohol use: Occasional Drug Abuse: None Family History: Reviewed & Not Pertinent, DM, Hypertension, Malignancy - Past Medical History Cardiac Medical History: Denies: Hx Coronary Artery Disease, Hx Heart Attack, Hx Hypertension Pulmonary Medical History: Denies: Hx Asthma, Hx Bronchitis, Hx COPD, Hx Pneumonia, Hx Tuberculosis Neurological Medical History: Denies: Hx Cerebrovascular Accident, Hx Seizures Renal/ Medical History: Reports: Hx Ovarian Cysts. Denies: Hx Peritoneal Dialysis GI Medical History: Reports: Hx Hiatal Hernia Musculoskeletal Medical History: Denies Hx Arthritis Past Surgical History: Reports: Hx Appendectomy, Hx Section, Hx Herniorrhaphy, Hx Oral Surgery - [place] teeth, Hx Tonsillectomy, Hx Umbilical Hernia. Denies: Hx Hysterectomy, Hx Pacemaker - Immunizations Hx Diphtheria, Pertussis, Tetanus Vaccination: Yes Vertical Provider Document - CONSTITUTIONAL Agree With Documented VS: Yes Exam Limitations: No Limitations General Appearance: Mild Distress - INFECTION CONTROL TRAVEL OUTSIDE OF THE [place] IN LAST 30 DAYS: No - HEENT HEENT: Atraumatic, Normocephalic. negative: Dental Injury, Pharyngeal Tender ness, Pharyngeal Erythema Notes: 1 cm oral lesion noted to the inner right lip. Erythematous tender to palpation no active discharge or draining noted. No fluctuant abscess palpated. - NECK Neck: Normal Inspection, Supple, Thyroid Normal - RESPIRATORY Respiratory: Breath Sounds Normal, No Respiratory Distress - CARDIOVASCULAR Cardiovascular: Regular Rate, Regular Rhythm, No Murmur - NEURO Level of Consciousness: Awake, Alert, Appropriate Motor/Sensory: No Motor Deficit, No Sensory Deficit - DERM Integumentary: Warm, Dry, No Rash Course - Re-evaluation Re-evalutation: 03/20/20 12:23 Reviewed diagnosis with patient. Counseled to take antibiotics as prescribed. Dab a small amount of the viscous lidocaine with a Q-tip to the area every 4 hours as needed for pain. Outpatient follow-up with your primary care physician as well as your dentist as discussed. Patient was given strict return to the emergency room guidelines. Return for any new or worsening symptoms. All questions were answered. Patient verbalized understanding and agrees with plan of care. - Vital Signs Vital signs: Temp Pulse Resp BP Pulse Ox 98.7 F 80 16 130/85 H 100 03/20/20 11:54 03/20/20 11:54 03/20/20 11:54 03/20/20 11:54 03/20/20 11:54 Discharge - Discharge Clinical Impression: Oral mucosal lesion Condition: Stable Disposition: HOME, SELF-CARE Instructions: Clindamycin ([facility]), Mouth Sores ([facility]) Additional Instructions: Avoid foods that are acidic. Antibiotics as prescribed. Apply a small amount of viscous lidocaine with a Q-tip every 4 hours as needed for pain. Outpatient follow-up with your dentist and primary care physician as discussed. Return to the emergency room for any new or worsening symptoms. Prescriptions: Clindamycin HCl 300 mg PO QID #40 capsule Lidocaine HCl [Xylocaine 2% Viscous Soln 15 ml Udcup] 2 ml PO Q4H PRN #100 ml PRN Reason:
== END 2020-03-20 12:37 | disposition home or self-care (01) ==
LOC: ER 11:35
DX: K13.70 Unspecified lesions of oral mucosa (principal); F17.200 Nicotine dependence, unspecified, uncomplicated
CPT/HCPCS: 99283

== ENCOUNTER 2020-06-01 00:23 | Emergency (ER) | payer MEDICAID ==
[2020-06-01] MEDS ORDERED: ACETAMINOPHEN 325 MG TABLET ONE (01:41)
[2020-06-01] MEDS ORDERED: ACETAMINOPHEN 325 MG TABLET PO ONE (06:11)
[2020-06-01 06:43] LABS: HEMATOCRIT 38.3 % (36.0-47.0); MEAN CORPUSCULAR HEMOGLOBIN 29.6 pg (27.0-33.4); MEAN CORPUSCULAR VOLUME 87 fl (80-97); PLATELET COUNT 292 10^3/uL (150-450); RED BLOOD COUNT 4.41 10^6/uL (3.72-5.28); RED CELL DISTRIBUTION WIDTH 13.1 % (11.5-14.0); WHITE BLOOD COUNT 23.2 10^3/uL (4.0-10.5)
[2020-06-01 06:44] LABS: ABSOLUTE LYMPHOCYTES# (MANUAL) 1.9 10^3/uL (0.5-4.7); ABSOLUTE MONOCYTES # (MANUAL) 0.5 10^3/uL (0.1-1.4); BAND NEUTROPHILS % (MANUAL) 1 % (3-5); BASOPHILS % (MANUAL) 0 % (0-2); EOSINOPHILS % (MANUAL) 0 % (0-6); LYMPHOCYTES % (MANUAL) 8 % (13-45); MONOCYTES % (MANUAL) 2 % (3-13); OVALOCYTES SLIGHT; PLATELET COMMENT ADEQUATE; POIKILOCYTOSIS SLIGHT; SEGMENTED NEUTROPHILS % (MAN) 89 % (42-78); TEAR DROP CELLS SLIGHT; TOTAL CELLS COUNTED 100
[2020-06-01 06:59] LABS: APPEARANCE,URINE SLIGHTLY-CLOUDY; BILIRUBIN,URINE NEGATIVE (NEGATIVE); COLOR,URINE AMBER; GLUCOSE, URINE NEGATIVE (NEGATIVE); KETONES,URINE 80 mg/dL (NEGATIVE); LEUKOCYTE ESTERASE,URINE TRACE (NEGATIVE); NITRITE,URINE POSITIVE (NEGATIVE); PROTEIN,URINE 100 mg/dL (NEGATIVE); URINE SPECIFIC GRAVITY 1.033
[2020-06-01 07:17] LABS: ALBUMIN 4.3 g/dL (3.5-5.0); ALKALINE PHOSPHATASE 119 U/L (38-126); ANION GAP 17 (5-19); ASPARTATE AMINO TRANSFERASE 81 U/L (14-36); BILIRUBIN,DIRECT 0.4 mg/dL (0.0-0.4); BILIRUBIN,TOTAL 1.6 mg/dL (0.2-1.3); BLOOD UREA NITROGEN 7 mg/dL (7-20); CALCIUM 9.7 mg/dL (8.4-10.2); CARBON DIOXIDE 15 mmol/L (22-30); CHLORIDE 105 mmol/L (98-107); GLUCOSE 139 mg/dL (75-110); POTASSIUM 3.7 mmol/L (3.6-5.0)
[2020-06-01] MEDS ORDERED: NORMAL SALINE 1000 ML 1,000 ML IV ONE (08:00)
[2020-06-01] MEDS ORDERED: AZITHROMYCIN INJ 500 MG VIAL IV ONE ×2 (08:00→11:13)
[2020-06-01] MEDS ORDERED: CEFTRIAXONE 1 GM/D5W RTU 1 GM/50 ML RTUPB IV ONE ×2 (08:00→11:13)
[2020-06-01] MEDS ORDERED: DEXAMETHASONE SOD PHOS INJ 10 MG/1 ML VIAL PO ONE (08:01)
--- NOTE | 2020-06-01 08:46 | RADIOLOGY REPORT (SQ) ---
CHEST X-RAY 2 view on 06/01/2020 at 2:27 AM CLINICAL INDICATION: Shortness of breath, chest pain COMPARISON: 08/17/2019 FINDINGS: There has been development of bilateral interstitial and airspace opacities consistent with edema and/or pneumonia and differential diagnosis would include viral infections. This does have a worrisome pattern for COVID 19 pneumonia and would recommend appropriate testing. Cardiac, hilar and mediastinal contours are within normal limits. No bony abnormality is noted. IMPRESSION: Bilateral opacities likely representing pneumonia and differential diagnosis would include viral infections.
[2020-06-01 08:57] LABS: VENOUS BLOOD BASE EXCESS -6.6 mmol/L; VENOUS BLOOD HCO3 15.2 mmol/L (20-32); VENOUS BLOOD PCO2 24.1 mmHg (35-63); VENOUS BLOOD PH 7.42 (7.30-7.42)
[2020-06-01] MEDS ORDERED: LIDOCAINE 2% VISCOUS SOLN 15 ML UDCUP PO ONE (10:22)
[2020-06-01 11:34] VITALS: BP 139/87
[2020-06-01] MEDS ORDERED: NORMAL SALINE 1000 ML 500 ML IV ONE (11:53)
--- NOTE | 2020-06-01 12:38 | ER Document Report ---
ED Respiratory Problem - General Chief Complaint: Shortness Of Breath Stated Complaint: SHORTNESS OF BREATH Time Seen by Provider: 06/01/20 07:51 Notes: HPI: 30-year-old female presents with 2 days of some cough; spitting up phlegm, no calf pain or leg swelling, body aches but no recorded fever, without any diarrhea or dysuria. Patient denies any obvious Covid contacts. She denies any chest pain and shortness of breath only when ambulating. ROS: See HPI All other review of systems reviewed and otherwise negative Reviewed vital signs and nursing note as charted by RN. PHYSICAL EXAM: CONSTITUTIONAL: Alert and oriented and responds appropriately to questions. Well-appearing; well-nourished HEAD: Normocephalic; atraumatic EYES: PERRL; Conjunctivae clear, sclerae non-icteric ENT: Normal nose; no rhinorrhea; moist mucous membranes; pharynx without lesions noted NECK: Supple without meningismus; non-tender; no cervical lymphadenopathy, no masses CARD: Regular rate and rhythm; no murmurs; symmetric distal pulses RESP: Normal chest excursion without splinting or tachypnea; breath sounds clear and equal bilaterally; scattered rhonchi to bilateral lung yip ABD/GI: Normal bowel sounds; non-distended; soft, non-tender to deep palpation of all 4 quadrants of the abdomen BACK: The back appears normal and is non-tender to palpation EXT: Normal ROM in all joints; non-tender to palpation; no edema SKIN: No acute lesions noted NEURO: CN 2-12 intact; 5/5 bilateral upper and lower extremity strength with sensation intact to light touch PSYCH: The patient's mood and manner are appropriate. Grooming and personal hyg iene are appropriate. TRAVEL OUTSIDE OF THE [place] IN LAST 30 DAYS: No - Related Data Allergies/Adverse Reactions: No Known Allergies Allergy (Verified 07/27/17 15:34) Past Medical History - Social History Smoking Status: Current Every Day Smoker Chew tobacco use (# tins/day): No Frequency of alcohol use: Occasional Family History: Reviewed & Not Pertinent, DM, Hypertension, Malignancy Patient has homicidal ideation: No - Past Medical History Cardiac Medical History: Denies: Hx Coronary Artery Disease, Hx Heart Attack, Hx Hypertension Pulmonary Medical History: Denies: Hx Asthma, Hx Bronchitis, Hx COPD, Hx Pneumonia, Hx Tuberculosis Neurological Medical History: Denies: Hx Cerebrovascular Accident, Hx Seizures Renal/ Medical History: Reports: Hx Ovarian Cysts. Denies: Hx Peritoneal Dialysis GI Medical History: Reports: Hx Hiatal Hernia Musculoskeletal Medical History: Denies Hx Arthritis Past Surgical History: Reports: Hx Appendectomy, Hx Section, Hx Herniorrhaphy, Hx Oral Surgery - [place] teeth, Hx Tonsillectomy, Hx Umbilical Hernia. Denies: Hx Hysterectomy, Hx Pacemaker - Immunizations Hx Diphtheria, Pertussis, Tetanus Vaccination: Yes Physical Exam - Vital signs Vitals: Temp 97.4 F 06/01/20 00:23 Course - Re-evaluation Re-evalutation: Given the above history and physical, we will obtain an x-ray of the chest, basic labs, and a septic work-up. Given the lung examination, I am concerned about the possibility of coronavirus versus a pneumonia. 06/01/20 10:34 Labs and imaging as recorded. Elevated white blood cell count. Multifocal pneumonia seen on x-ray. Could possibly be viral. Coronavirus is pending. We have called of the nursing security supervisor to obtain a rapid Covid test. - Vital Signs Vital signs: Temp Pulse Resp BP Pulse Ox 97.8 F 78 14 139/87 H 97 06/01/20 05:43 06/01/20 05:43 06/01/20 11:01 06/01/20 11:01 06/01/20 11:01 - Laboratory Results Result Diagrams: 06/01/20 01:43 06/01/20 01:43 Laboratory Results Interpreted: 06/01/20 06/01/20 06/01/20 01:43 01:43 01:43 WBC 23.2 H Seg Neuts % (Manual) 89 H Band Neutrophils % 1 L Lymphocytes % (Manual) 8 L Monocytes % (Manual) 2 L Abs Neuts (Manual) 20.9 H VBG pCO2 VBG HCO3 Sodium 136.6 L Carbon Dioxide 15 L Glucose 139 H Total Bilirubin 1.6 H AST 81 H ALT 88 H Urine Protein 100 H Urine Ketones 80 H Urine Blood LARGE H Urine Nitrite POSITIVE H Urine Urobilinogen 4.0 H Ur Leukocyte Esterase TRACE H 06/01/20 08:25 WBC Seg Neuts % (Manual) Band Neutrophils % Lymphocytes % (Manual) Monocytes % (Manual) Abs Neuts (Manual) VBG pCO2 24.1 L VBG HCO3 15.2 L Sodium Carbon Dioxide Glucose Total Bilirubin AST ALT Urine Protein Urine Ketones Urine Blood Urine Nitrite Urine Urobilinogen Ur Leukocyte Esterase Critical Laboratory Results Reviewed: No Critical Results - Radiology Results Critical Radiology Results Reviewed: No Critical Results Discharge - Discharge Clinical Impression: Multifocal pneumonia Condition: Fair Disposition: ADMITTED INPATIENT Admitting Provider: Frank (Hospitalist) Unit Admitted: Medical Floor
--- NOTE | 2020-06-01 14:21 | EKG REPORT ---
SEVERITY:- ABNORMAL ECG - SINUS RHYTHM PROBABLE LEFT VENTRICULAR HYPERTROPHY : Confirmed by: Azucena Guo MD 01-Jun-2020 14:19:45
--- NOTE | 2020-06-01 14:38 | PDOC CONSULTATION ---
Consultation Consult Date: 06/01/20 Attending physician:: DEBORAH VERGARA Provider Consulted: VIKAS STORY Consult reason:: Shortness of breath History of Present Illness Admission Date/PCP: 06/01/20 13:09 Patient complains of: Shortness of breath cough History of Present Illness: MJ CHO is a 30 year old female with no significant past medical history, who presents to the hospital for evaluation of progressive dyspnea worse on exertion. She also admits to having a cough with sputum production. She denies any fevers at home. Her symptoms started about 2 days ago. She has some nausea and mild vomiting but able to tolerate p.o. She has also loss of appetite and admits to generalized myalgias. She denies diarrhea. She denies any history of pneumonia or heart conditions. She denies any sick/Covid contacts. In the ER, chest x-ray revealed bilateral pneumonia. Hospitalist service consulted. Rapid Covid test done in the ER was negative. She states she currently feels better in terms of her breathing after receiving breathing treatments in the ER. She denies history of asthma or COPD. She endorses history of seasonal allergies. Past Medical History Cardiac Medical History: Denies: Coronary Artery Disease, Myocardial Infarction, Hypertension Pulmonary Medical History: Denies: Asthma, Bronchitis, Chronic Obstructive Pulmonary Disease (COPD), Pneumonia, Tuberculosis Neurological Medical History: Denies: Seizures GI Medical History: Reports: Hiatal Hernia Musculoskeltal Medical History: Denies: Arthritis Hematology: Denies: Anemia Past Surgical History Past Surgical History: Reports: Appendectomy, Section, Herniorrhaphy, Tonsillectomy Denies: Hysterectomy, Pacemaker Social History Smoking Status: Current Some Day Smoker Electronic Cigarette use?: No Frequency of Alcohol Use: Occasional Hx Recreational Drug Use: No Hx Prescription Drug Abuse: No Family History Family History: DM, Hypertension, Malignancy, Other - Denies history of heart failure. denies: CAD Parental Family History Reviewed: Yes Children Family History Reviewed: Yes Sibling(s) Family History Reviewed.: Yes Medication/Allergy Home Medications: Ibuprofen 800 mg PO 01/10/17 Oxycodone HCl/Acetaminophen [Percocet 5-325 mg Tablet] 1 - 2 tab PO ASDIR PRN 01/10/17 Benzonatate [Tessalon Perle 100 mg Capsule] 100 mg PO Q8HP PRN #15 cap 07/27/17 Prednisone [Deltasone 20 mg Tablet] 3 tab PO DAILY 4 Days #12 tablet 08/17/19 Chlorhexidine Gluconate [Periogard] 10 ml MM QID #1 bottle 02/05/20 Clindamycin HCl 300 mg PO TID #30 capsule 02/05/20 Oxycodone HCl/Acetaminophen [Percocet 5-325 mg Tablet] 1 tab PO Q6HP PRN #12 tablet 02/05/20 Clindamycin HCl 300 mg PO QID #40 capsule 03/20/20 Lidocaine HCl [Xylocaine 2% Viscous Soln 15 ml Udcup] 2 ml PO Q4H PRN #100 ml 03/20/20 Allergies/Adverse Reactions: No Known Allergies Allergy (Verified 06/01/20 13:50) Review of Systems Constitutional: ABSENT: chills, fever(s) Eyes: ABSENT: visual disturbances Nose, Mouth, and Throat: ABSENT: headache(s) Cardiovascular: PRESENT: dyspnea on exertion. ABSENT: chest pain, edema, orthropnea Respiratory: PRESENT: cough, dyspnea, sputum. ABSENT: hemoptysis Gastrointestinal: PRESENT: nausea. ABSENT: abdominal pain, diarrhea, vomiting Genitourinary: ABSENT: difficulty urinating, dysuria Integumentary: ABSENT: diaphoresis Neurological: ABSENT: confusion, dizziness Endocrine: PRESENT: polyuria Hematologic/Lymphatic: ABSENT: easy bleeding Allergic/Immunologic: PRESENT: seasonal rhinorrhea Physical Exam Vital Signs: Temp Pulse Resp BP Pulse Ox 97.8 F 78 14 139/87 H 97 06/01/20 05:43 06/01/20 05:43 06/01/20 11:01 06/01/20 11:01 06/01/20 11:01 Intake & Output 05/31/20 06/01/20 06/02/20 06:59 06:59 06:59 Intake Total 1550 Balance 1550 Weight 70.307 kg General appearance: PRESENT: no acute distress, cooperative Head exam: PRESENT: normocephalic Eye exam: PRESENT: EOMI Mouth exam: PRESENT: neck supple Neck exam: ABSENT: JVD Respiratory exam: PRESENT: crackles - Mild right lower lung crackles., sym metrical, unlabored. ABSENT: accessory muscle use, retraction, tachypnea, wheezes Cardiovascular exam: PRESENT: RRR, +S1, +S2. ABSENT: tachycardia GI/Abdominal exam: PRESENT: soft. ABSENT: rebound, rigid, tenderness Extremities exam: ABSENT: calf tenderness, pedal edema, +1 edema, +2 edema Musculoskeletal exam: PRESENT: ambulatory Neurological exam: PRESENT: alert, awake, oriented to person, oriented to place, oriented to time, oriented to situation Psychiatric exam: ABSENT: agitated, anxious Focused psych exam: ABSENT: pressured speech Skin exam: ABSENT: jaundice Results Laboratory Results: 06/01/20 01:43 06/01/20 01:43 06/01/20 06/01/20 06/01/20 01:43 01:43 01:43 WBC 23.2 H RBC 4.41 Hgb 13.0 Hct 38.3 MCV 87 MCH 29.6 MCHC 34.0 RDW 13.1 Plt Count 292 Seg Neutrophils % Not Reportable VBG pH VBG pCO2 VBG HCO3 VBG Base Excess Sodium 136.6 L Potassium 3.7 Chloride 105 Carbon Dioxide 15 L Anion Gap 17 BUN 7 Creatinine 0.63 Est GFR ( Amer) > 60 Glucose 139 H Lactic Acid Calcium 9.7 Total Bilirubin 1.6 H AST 81 H Alkaline Phosphatase 119 Total Protein 8.0 Albumin 4.3 Urine Color [place] Urine Appearance SLIGHTLY-CLOUDY Urine pH 6.0 Ur Specific [place] 1.033 Urine Protein 100 H Urine Glucose (UA) NEGATIVE Urine Ketones 80 H Urine Blood LARGE H Urine Nitrite POSITIVE H Ur Leukocyte Esterase TRACE H Urine WBC (Auto) 13 Urine RBC (Auto) 87 06/01/20 06/01/20 08:25 08:25 WBC RBC Hgb Hct MCV MCH MCHC RDW Plt Count Seg Neutrophils % VBG pH 7.42 VBG pCO2 24.1 L VBG HCO3 15.2 L VBG Base Excess -6.6 Sodium Potassium Chloride Carbon Dioxide Anion Gap BUN Creatinine Est GFR ( Amer) Glucose Lactic Acid 1.3 Calcium Total Bilirubin AST Alkaline Phosphatase Total Protein Albumin Urine Color Urine Appearance Urine pH Ur Specific [place] Urine Protein Urine Glucose (UA) Urine Ketones Urine Blood Urine Nitrite Ur Leukocyte Esterase Urine WBC (Auto) Urine RBC (Auto) Impressions: Chest X-Ray 06/01/20 00:00 IMPRESSION: Bilateral opacities likely representing pneumonia and differential diagnosis would include viral infections. Assessment and Plan - Diagnosis (1) Bilateral pneumonia Is this a current diagnosis for this admission?: Yes (2) Dyspnea Is this a current diagnosis for this admission?: Yes (3) Transaminitis Is this a current diagnosis for this admission?: Yes (4) Leukocytosis Is this a current diagnosis for this admission?: Yes (5) Ketosis Is this a current diagnosis for this admission?: Yes - Plan Summary Summary: 30-year-old female with history of seasonal allergies otherwise no significant past medical history is no history of lower tract respiratory respiratory tract infections, who presents with dyspnea mostly exertional, leukocytosis, generalized body aches. Labs revealed transaminitis, mild hyperbilirubinemia consistent with viral infection. However her rapid COVID-19 test/flu test are negative. Chest x-ray shows bilateral pneumonia. Despite her dyspnea, her harvinder ls are all normal and she is not hypoxic. Patient was ambulated and her pulse ox was noted to not drop below 93% on room air. During my encounter, her pulse ox remained at 98% on room air throughout her conversation. Urinalysis shows ketosis likely a mild starvation ketosis. She is able to tolerate po so just needs encouragement. I would recommend discharging patient home on antibiotics for 5 days for treatment of possibly bacterial bilateral pneumonia. Despite the negative rapid Covid test, it does not rule out COVID-19 pneumonia so I recommend sending out a COVID PCR test as well. She notes audible wheezing at home and endorses improvement after breathing treatments. I would recommend 3-5 days of prednisone 40mg daily and albuterol inhaler on discharge. Also consider CTA chest to rule out PE which is frequently seen in COVID patients. If CTA shows PE, discharge on Eliquis or Xarelto. If CTA shows right h eart strain, notify hospitalist service. - Time Time Spent with patient: 35 or more minutes Anticipated Discharge Disposition: Home, Self Care Anticipated Discharge Timeframe: within 24 hours
--- NOTE | 2020-06-01 16:21 | RADIOLOGY REPORT (SQ) ---
EXAM DESCRIPTION: CTA CHEST IMAGES COMPLETED DATE/TIME: 06/01/2020 4:10 pm REASON FOR STUDY: 7; SOB cough COMPARISON: None. TECHNIQUE: CT scan of the chest performed using helical scanning technique with dynamic intravenous contrast injection. Images reviewed with lung, soft tissue and bone windows. Reconstructed coronal and sagittal MPR images reviewed. Additional 3 dimensional post-processing performed to develop Maximal Intensity Projection images ([place] P). All images stored on PACS. All CT scanners at this facility use dose modulation, iterative reconstruction, and/or weight based d osing when appropriate to reduce radiation dose to as low as reasonably achievable (ALARA). [facility]: Dose Right [facility]: CareDose [facility]: Dose Right [facility]: Teradose 4D [facility]: LegalReach CONTRAST TYPE AND DOSE: contrast/concentration: Isovue 350.00 mmol/ml; Total Contrast Delivered: 54. 0 ml; Total Saline Delivered: 60.0 ml Contrast bolus adequate for pulmonary arteries and aorta. RENAL FUNCTION: GFR > 60. RADIATION DOSE: CT Rad equipment meets quality standard of care and radiation dose reduction techniq ues were employed. CTDIvol: 14.6 - 19.8 mGy. DLP: 514 mGy-cm. . LIMITATIONS: None. FINDINGS: LUNGS AND PLEURA: Diffuse bilateral ground-glass attenuation in both lungs. No effusions. AORTA AND GREAT VESSELS: No aneurysm. No dissection. HEART: No pericardial effusion. No significant coronary artery calcifications. PULMONARY ARTERIES: No emboli visualized in the main pulmonary arteries or the segmental branches. HILAR AND MEDIASTINAL STRUCTURES: No identified masses or abnormal nodes. HARDWARE: None in the chest. UPPER ABDOMEN: No significant findings. Limited exam. THYROID AND OTHER SOFT TISSUES: No masses. No adenopathy. BONES: No acute or significant finding. 3D MIPS: Confirm above findings. OTHER: No other significant finding. IMPRESSION: 1. No PE. 2. Diffuse viral or atypical pneumonia. COMMENT: Commonly reported imaging features of COVID-19 pneumonia are present. Other processes suc h as influenza pneumonia and organizing pneumonia, as can be seen with drug toxicity and connective t issue disease, can cause a similar imaging pattern. [facility] Quality ID # [id number]: Final reports with documentation of one or more dose reduction techniques (e.g., Au tomated exposure control, adjustment of the mA and/or kV according to patient size, use of iterative reconstruction technique) TECHNICAL DOCUMENTATION: JOB ID: [id number] 2010 [employer]- All Rights Reserved Reading location - IP/workstation name: [email or web address]
[2020-06-01] MEDS ORDERED: ALBUTEROL SULFATE HFA (90 MCG/PUFF) 8 GM MDI (1 MDI/ER DISP) IH PRN (16:52)
[2020-06-01] MEDS ORDERED: LEVOFLOXACIN 750 MG TABLET PO ONE (16:52)
== END 2020-06-01 17:23 | disposition home or self-care (01) ==
LOC: ER 00:23 → UNDOADMIN 13:09 → EH 13:09 → ER 17:23
DX: J18.9 Pneumonia, unspecified organism (principal); R74.01 Elevation of levels of liver transaminase levels; D72.829 Elevated white blood cell count, unspecified; E88.89 Other specified metabolic disorders; F17.200 Nicotine dependence, unspecified, uncomplicated; Z20.828 Contact with and (suspected) exposure to other viral communicable diseases
CPT/HCPCS: 93005; 99285; 96375; 96365; 36415; 87040; 83605; 85025; 0241U ×4; 80053; 81001; 82803; 71046; 71275; 93010; J3490 ×4; J7030; J0456; J0696; J1100; C9803; 87077; 87150